=== PATIENT | male | born 1945 | race Caucasian/White ===

== ENCOUNTER 2023-06-19 10:00 | Inpatient (IN) | payer MEDICARE, OTHER, SELFPAY ==
[2023-06-19 11:45] VITALS: PULSE 68; RESP 16; O2SAT 95
[2023-06-19 12:53] VITALS: BP 137/76; PULSE 68; RESP 18; TEMP 36.1; O2SAT 95
[2023-06-19 12:55] VITALS: BMI 24.0
[2023-06-19] MEDS: rOPINIRole HCL 1 MG TABLET PO ×3 (13:51→20:14)
[2023-06-19] MEDS: BISACODYL 5 MG TABLET EC PO (13:52)
[2023-06-19 16:00] VITALS: BP 133/70; PULSE 73; RESP 24; TEMP 36.5; O2SAT 97
[2023-06-19] MEDS: LATANOPROST 0.005% OP SOLN 2.5 ML BTL 1 DROP EACH EYE (17:02)
[2023-06-19] MEDS: MIDODRINE HCL 2.5 MG TABLET 5 MG PO (17:02)
--- NOTE | 2023-06-19 17:26 | PC.NURSE ---
Nursing Note: Pt up to chair for dinner, takes meds in applesauce, atovent nasal spray not available from pharmacy.
[2023-06-19] MEDS: DONEPEZIL HCL 5 MG TABLET 10 MG PO (20:13)
[2023-06-19] MEDS: MELATONIN 5 MG TABLET 10 MG PO (20:13)
[2023-06-19] MEDS: TAMSULOSIN HCL 0.4 MG CAPSULE PO (20:14)
[2023-06-19] MEDS: CARBIDOPA/LEVODOPA 25/100 MG CR TABLET 1 TABLET PO (20:32)
[2023-06-20] VITALS: BP 133/77; PULSE 62; RESP 16; TEMP 36.1; O2SAT 97
--- NOTE | 2023-06-20 01:55 | PC.NURSE ---
Destiny Stearns NP contacted regarding pt's c/o right hip pain. New orders received for pain medication at this time.
[2023-06-20] MEDS: traMADol HCL (*CRX) 50 MG TABLET PO ×2 (02:05→20:23)
[2023-06-20 08:00] VITALS: BP 141/84; PULSE 75; RESP 14; TEMP 36.2; O2SAT 93
[2023-06-20] MEDS: IPRATROPIUM NASAL SPRAY 0.03% 15 ML BOTTLE 2 SPRAY NASAL ×2 (08:54→17:10)
[2023-06-20] MEDS: AZELASTINE HCL NASAL 0.1% 137 MCG/SPR 30 ML BTL 1 SPRAY NASAL ×2 (08:54→20:22)
[2023-06-20] MEDS: AMANTADINE HCL 100 MG CAPSULE PO ×2 (08:55→20:23)
[2023-06-20] MEDS: CHOLECALCIFEROL 1,000 UNITS TABLET 1000 UNITS PO (08:56)
[2023-06-20] MEDS: MIDODRINE HCL 2.5 MG TABLET 5 MG PO ×2 (08:56→13:13)
[2023-06-20] MEDS: LORATADINE 10 MG TABLET PO (08:56)
[2023-06-20] MEDS: FINASTERIDE 5 MG TABLET PO (08:56)
[2023-06-20] MEDS: rOPINIRole HCL 1 MG TABLET PO ×4 (08:56→20:23)
[2023-06-20] MEDS: ASCORBIC ACID 500 MG TABLET PO (08:56)
[2023-06-20] MEDS: BISACODYL 10 MG SUPPOSITORY RECTAL (08:57)
--- NOTE | 2023-06-20 09:19 | PC.NURSE ---
Rectal exam done by RN. Soft stool noted in rectum. Ducolax suppository inserted . Pt is lying on left side in bed. Call light in reach.
--- NOTE | 2023-06-20 09:46 | PM.IMHP ---
H&P: HPI History of Present Illness Date/Time: 06/20/23 09:46 Chief Complaint: Right hip fracture Narrative: Markel is a 78 year old admitted to [facility] on 06/19/23 from [facility] for rehab, further PT/OT, s/p ORIF of R hip fracture. At home, he was using cane and walker. He has a history of dementia, Parkinson's disease and RLS, who lost his balance, had a fall, and subsequent intertrochanteric fracture at right hip. He underwent surgical repair, ORIF of R hip fracture. His labs at hospital admission were WNL. Orthopedic surgeon wants patient to F/U in his office within 4 weeks or sooner if needed. Patient had a large BM this morning and subsequently had a serious vaso-vagal LOC response, with passing out, low BP while on commode pushing. Patient has also had this happen many years ago with a PCN injection in the physician's office getting a Penicillin G injection. Pt. was put back into bed, feet elevated, and BP checked, found to have SBPs in 90s. Pt did get his Midodrine earlier this morning. Ordered 500ml IV NS bolus now. Ed has since awakened, knew his name, knew hospital name, City, State, year, and what he was here for. Patient continued to improve. I have spoke with his daughter and adjusted his midodrine dose timing to 0600 and Noon. He does have history of passing out after morning and noon meals, so important to get his midodrine in prior to those. Ordered Orthostatic VS q shift. He may require Florinef dosing in the morning. Healthcare POA Daughter in agreement - DNR/DNI. Patient and daughter had lengthy discussion with me this morning. He decided that he wanted to be DNR/DNI as he does not want to be intubated or on mechanical ventilator, but he does want to have oxygen, IVFluids, IV meds, O2 mask, and CPAP/Bipap - should he need it. Allergy: erythromycin, PCN, sulfa. Review of Systems Constitutional: Constitutional: Denies excessive sweating, Denies headache(s), Denies increased appetite, Denies snoring and Denies weight gain Eyes: Eyes: Denies exophthalmos, Denies diplopia, Denies floaters and Denies loss of peripheral vision ENT: Reports Normal hearing present, Denies facial pain, Denies headache(s), Denies odynophagia and Denies tinnitus Cardiovascular: Cardiovascular: Reports as per HPI, Denies chest pain and Reports diaphoresis (diaphoretic with syncope) Respiratory: Respiratory: Reports as per HPI, Denies chest congestion, Denies cough, Denies hemoptysis, Denies dyspnea, Denies snoring and Denies wheezing Gastrointestinal: Gastrointestinal: Reports as per HPI, Denies melena, Reports constipation, Denies diarrhea, Denies nausea, Denies odynophagia, Denies vomiting and Denies hematemesis Genitourinary: Genitourinary: Reports as per HPI, Denies hematuria, Denies dysuria, Denies flank pain and Denies urinary frequency Musculoskeletal: Musculoskeletal: Reports as per HPI and Denies back pain Comments: weakness Integumentary/Breasts: Skin/Breast: Reports as per HPI Neurologic: Reports as per HPI, Denies confusion (confusion only with syncope) and Denies headache(s) Psychiatric: Psychiatric: Reports as per HPI, Denies anxiety, Denies behavioral changes and Reports confusion (only with syncope) Endocrine: Endocrine: Denies excessive sweating Allergic/Immunologic: Allergic/Immunologic: Denies wheezing [facility] Family History Family History (Updated 06/20/23 @ 13:01 by Charmaine Dobson NP) Mother CHF (congestive heart failure) Heart disease Diabetes mellitus Father Seizures Cerebrovascular accident Social History Social History Smoking status: Never smoker Second hand tobacco smoke exposure: No Alcohol intake: never Substance use: never Substance use type: does not use Lack of Transportation: No Lack of Food: Never True Current Housing: I Have Housing Concerned About Future Housing: No Difficulty Payin
[2023-06-20 11:25] LABS: Basophils Absolute Auto 0.03 K/mm3 (0.00-0.10); Basophils Percent Auto 0.4 % (0.0-1.0); Eosinophils Absolute Auto 0.12 K/mm3 (0.02-0.50); Eosinophils Percent Auto 1.5 % (1.0-6.0); Hematocrit 33.1 % (37.0-46.0); Hemoglobin 10.6 g/dL (12.4-15.3); Immature Granulocyte Absolute 0.03 K/mm3 (0.00-0.00); Immature Granulocyte Percent A 0.4 % (0.0-0.0); Lymphocytes Absolute Auto 0.82 K/mm3 (1.10-4.50); Lymphocytes Percent Auto 10.2 % (18.0-42.0); Mean Corpuscular Hemoglobin 28.6 pg (27.0-31.0); Mean Corpuscular Volume 89.5 fL (78.0-102.0); Mean Platelet Volume 8.8 fl (8.7-11.0); Monocytes Absolute Auto 0.91 K/mm3 (0.10-0.90); Monocytes Percent Auto 11.3 % (2.0-11.0); Neutrophils Absolute Auto 6.1 K/mm3 (1.7-7.2); Neutrophils Percent Auto 76.2 % (50.0-70.0); Platelet Count Result 254 K/mm3 (150-420); Red Cell Distribution Width 13.9 % (11.6-14.4)
[2023-06-20] MEDS: SODIUM CHLORIDE 0.9% IV 1,000 ML 1000 ML (11:27)
[2023-06-20 11:48] LABS: Alanine Aminotransferase 15 U/L (16-63); Albumin Level 2.7 g/dL (3.4-5.0); Alkaline Phosphatase 128 U/L (46-116); Anion Gap 4 mmol/L (8-16); Aspartate Amino Transferase 39 U/L (15-37); Bilirubin,Total 0.8 mg/dL (0.00-1.00); Blood Urea Nitrogen 15 mg/dL (7-18); Calcium 7.8 mg/dL (8.5-10.1); Carbon Dioxide 30 mmol/L (21-32); Chloride 101 mmol/L (98-108); Estimated CRCL calculation 40 ml/min; Estimated Glomerular Filt Rate 50; Glucose 102 mg/dL (70-99); Magnesium 1.8 mg/dL (1.8-2.4); NT Pro B Type Natriuretic Pept 111 pg/mL (0-450); Osmolality Calculated 280 mOsm/kg (285-295); Phosphorus 3.7 mg/dL (2.6-4.7); Potassium 3.9 mmol/L (3.5-5.1); Sodium 135 mmol/L (136-145); Total Protein 5.6 g/dL (6.4-8.2)
[2023-06-20] MEDS: ACETAMINOPHEN 325 MG TABLET 650 MG PO ×2 (13:12→17:10)
[2023-06-20] MEDS: DOCUSATE SODIUM 100 MG CAPSULE 200 MG PO (13:13)
[2023-06-20] MEDS: LIDOCAINE 5% PATCH 1 PATCH TRANSDERM (13:14)
--- NOTE | 2023-06-20 13:40 | PC.NURSE ---
AT 1040 Pt on the bedside comode having a large BM and became unresponsive. TN called for help and Yahir Royal RN and Scott RN came to the room. pt lifted back to bed from the commode using 3 people. Pt placed in trendelenberg position, HIGHER LEVEL TEACHING ASSISTANT called to the room, IV started in the RH 20 GAC. B/P 97/63 with 55 pulse. NS started at 500ml over 30 minutes started. 1100: 107/59 with 52 pulse, 1115; 97/63 with 63 pulse. 1130: 92/58 sitting & standing 77/58. 1140: sitting 110/66 with 66 [id number]: standing 89/49. 1150: sitting 116/100, standing 89/52. 1230 sitting 110/80. Pt denies dizziness, Nausea or chest pain. Pt is A/O x 3. Pt ate lunch with out difficulty.
--- NOTE | 2023-06-20 13:59 | PC.NURSE ---
Pt completed the 500 ml bolus with no problems. Pt resting in bed at this time.
[2023-06-20 16:00] VITALS: BP 138/76; PULSE 70; RESP 16; TEMP 36.6
[2023-06-20] MEDS: LATANOPROST 0.005% OP SOLN 2.5 ML BTL 1 DROP EACH EYE (17:10)
[2023-06-20 20:00] VITALS: BP 113/68; PULSE 67; RESP 16; TEMP 36.4; O2SAT 98
[2023-06-20] MEDS: MELATONIN 5 MG TABLET 10 MG PO (20:22)
[2023-06-20] MEDS: SENNA/DOCUSATE SODIUM TABLET 1 TAB PO (20:23)
[2023-06-20] MEDS: CARBIDOPA/LEVODOPA 25/100 MG CR TABLET 1 TABLET PO (20:23)
[2023-06-20] MEDS: DONEPEZIL HCL 5 MG TABLET 10 MG PO (20:23)
[2023-06-20] MEDS: TAMSULOSIN HCL 0.4 MG CAPSULE PO (20:24)
[2023-06-21] VITALS: BP 103/74; PULSE 65; RESP 16; TEMP 36.4; O2SAT 97
[2023-06-21] MEDS: traMADol HCL (*CRX) 50 MG TABLET PO (05:18)
[2023-06-21] MEDS: MIDODRINE HCL 2.5 MG TABLET 5 MG PO ×2 (05:19→12:09)
[2023-06-21] MEDS: rOPINIRole HCL 1 MG TABLET PO ×2 (05:19→13:34)
[2023-06-21 07:45] VITALS: BP 141/73; PULSE 61; RESP 14; TEMP 36.4; O2SAT 95
[2023-06-21] MEDS: SODIUM CHLORIDE 0.9% IV 500 ML (07:55)
[2023-06-21 08:00] VITALS: BP 99/59; PULSE 59; RESP 14; TEMP 36.4; O2SAT 95
--- NOTE | 2023-06-21 08:55 | ECG_ITS ---
Measurements Intervals [place] Rate: 75 P: 48 [place]: 123 QRS: -8 QRSD: 85 T: -14 QT: 394 QTc: 441 Interpretive Statements SINUS RHYTHM WITH OCCASIONAL VENTRICULAR PREMATURE COMPLEXES LOW QRS VOLTAGE IN PRECORDIAL LEADS VOLTAGE CRITERIA FOR LVH [MEETS CRITERIA IN ONE POSSIBLE ANTERIOR MYOCARDIAL INFARCTION , AGE INDETERMINATE Electronically Signed On 06-22-2023 13:03:50 LOAN DOCUMENTS CLOSER by Wallace Pham M.D.
--- NOTE | 2023-06-21 08:56 | PC.NURSE ---
Called daughter to notify of syncope episode and possible transfer to [place].
[2023-06-21 09:20] LABS: Hematocrit 33.7 % (37.0-46.0); Hemoglobin 10.9 g/dL (12.4-15.3); Mean Corpuscular HGB Conc 32.3 g/dL (32.0-36.0); Mean Corpuscular Hemoglobin 28.9 pg (27.0-31.0); Mean Corpuscular Volume 89.4 fL (78.0-102.0); Mean Platelet Volume 8.6 fl (8.7-11.0); Platelet Count Result 243 K/mm3 (150-420); Red Blood Count 3.77 M/mm3 (4.70-6.10); Red Cell Distribution Width 13.9 % (11.6-14.4); White Blood Count 6.2 K/mm3 (4.8-10.8)
[2023-06-21 09:38] LABS: Alanine Aminotransferase 18 U/L (16-63); Albumin Level 2.7 g/dL (3.4-5.0); Alkaline Phosphatase 138 U/L (46-116); Anion Gap 2 mmol/L (8-16); Aspartate Amino Transferase 29 U/L (15-37); Bilirubin,Total 0.7 mg/dL (0.00-1.00); Blood Urea Nitrogen 15 mg/dL (7-18); Calcium 8.2 mg/dL (8.5-10.1); Carbon Dioxide 31 mmol/L (21-32); Chloride 101 mmol/L (98-108); Estimated CRCL calculation 43 ml/min; Estimated Glomerular Filt Rate 54; Glucose 120 mg/dL (70-99); Osmolality Calculated 279 mOsm/kg (285-295); Potassium 3.9 mmol/L (3.5-5.1); Sodium 134 mmol/L (136-145); Total Protein 5.5 g/dL (6.4-8.2); Troponin I 7.2 ng/L (0.00-60.4)
[2023-06-21] MEDS: CHOLECALCIFEROL 1,000 UNITS TABLET 1000 UNITS PO (10:28)
[2023-06-21] MEDS: DOCUSATE SODIUM 100 MG CAPSULE 200 MG PO (10:28)
[2023-06-21] MEDS: ASCORBIC ACID 500 MG TABLET PO (10:28)
[2023-06-21] MEDS: AMANTADINE HCL 100 MG CAPSULE PO (10:29)
[2023-06-21] MEDS: FINASTERIDE 5 MG TABLET PO (10:29)
[2023-06-21] MEDS: ACETAMINOPHEN 325 MG TABLET 650 MG PO ×2 (10:29→13:33)
[2023-06-21] MEDS: LORATADINE 10 MG TABLET PO (10:29)
--- NOTE | 2023-06-21 11:23 | PC.NURSE ---
enema not given . Pt bowels are movine large amounts of soft stool.
--- NOTE | 2023-06-21 12:52 | PC.NURSE ---
Spoke with daughter and patient regarding hospitals that we are calling for transfer. Daughter does not want her father to transfer to [facility]. I explained he needed a higher level of care and that if the other hospitals do not call back we will have to attempt [facility]. She wants to wait to see if one of her choices responds at this time.
--- NOTE | 2023-06-21 12:53 | PM.TDS ---
Transfer Discharge Sum: Prov Provider Date of admission: 06/19/23 10:00 Primary care physician: Enrico Flower, MFaith Admitting clinician: Vineet Sarkar MD Attending physician on admission: Delgado Sarkar Attending physician on discharge: Delgado Sarkar Discharging clinician: Joni Gibbons Anticipated date of transfer: 06/21/23 Receiving physician/facility: Dr. Ventura at [facility] DS: Admitting Diagnosis Discharge Date 06/21/2023 Admitting Diagnosis right hip fracture, dementia, Parkinson's, RLS, orthostatic hypotension DS: Discharge Diagnosis Discharge Diagnosis (1) Dementia: Code(s): F03.90 - Unspecified dementia, unspecified severity, without behavioral disturbance, psychotic disturbance, mood disturbance, and anxiety Status: Acute (2) RLS (restless legs syndrome): Code(s): G25.81 - Restless legs syndrome Status: Acute (3) Parkinson disease, symptomatic: Code(s): G20.A1 - Parkinson's disease without dyskinesia, without mention of fluctuations Status: Acute (4) Primary orthostatic hypotension: Code(s): I95.1 - Orthostatic hypotension Status: Acute (5) Hip fracture, right: Code(s): S72.001A - Fracture of unspecified part of neck of right femur, initial encounter for closed fracture Status: Acute (6) S/P ORIF (open reduction internal fixation) fracture: Code(s): Z98.890 - Other specified postprocedural states; Z87.81 - Personal history of (healed) traumatic fracture Status: Acute (7) Constipation: Code(s): K59.00 - Constipation, unspecified Status: Acute (8) Syncope due to orthostatic hypotension: Code(s): I95.1 - Orthostatic hypotension Status: Acute (9) Symptomatic bradycardia: Code(s): R00.1 - Bradycardia, unspecified Status: Acute Transfer Discharge Sum: Med Medications Active and Home Medications: Home Medications ascorbic acid (vitamin C) 500 mg capsule,extended release 500 mg PO DAILY 02/04/20 [History Confirmed 06/19/23] finasteride 5 mg tablet 5 mg PO DAILY 02/04/20 [History Confirmed 06/19/23] tamsulosin 0.4 mg capsule 0.4 mg PO HS 02/04/20 [History Confirmed 06/19/23] tizanidine 2 mg capsule 2 mg PO TID PRN Cramps 02/04/20 [History Confirmed 06/19/23] latanoprost 0.005 % eye drops 1 drp ophthalmic (eye) QPM 05/12/20 [History Confirmed 06/19/23] Trish 180 mg DAILY 06/19/23 [History Confirmed 06/19/23] Dulcolax Stool Softener (dss) 100 mg BID 06/19/23 [History Confirmed 06/19/23] Potassium-99 99 mg HS 06/19/23 [History Confirmed 06/19/23] amantadine HCl 100 mg capsule 100 mg BID 06/19/23 [History Confirmed 06/19/23] azelastine 137 mcg (0.1 %) nasal spray aerosol 137 mcg intranasal BID 06/19/23 [History Confirmed 06/19/23] carbidopa 25 mg-levodopa 100 mg tablet See Rx Instructions .Route .COMPLEX 06/19/23 [History Confirmed 06/19/23] carbidopa ER 25 mg-levodopa 100 mg tablet,extended release 25 - 100 tablet PO HS 06/19/23 [History Confirmed 06/19/23] donepezil 10 mg tablet 10 mg HS 06/19/23 [History Confirmed 06/19/23] flaxseed 1,000 mcg DAILY 06/19/23 [History Confirmed 06/19/23] ipratropium bromide 21 mcg (0.03 %) nasal spray 2 spray intranasal BID 06/19/23 [History Confirmed 06/19/23] melatonin 10 mg HS 06/19/23 [History Confirmed 06/19/23] midodrine 5 mg tablet 5 mg BID 06/19/23 [History Confirmed 06/19/23] ropinirole 1 mg tablet 1 mg QID 06/19/23 [History Confirmed 06/19/23] Active Medications Acetaminophen (Acetaminophen 325 Mg Tablet) 650 mg PO TID [facility] Last Admin: 06/21/23 10:29 Dose: 650 mg Acetaminophen (Acetaminophen 500 Mg Tablet) 500 mg PO Q12HR PRN PRN Reason: Mild Pain (1-5) Amantadine HCl (Amantadine Hcl 100 Mg Capsule) 100 mg PO Q12HR [facility] Last Admin: 06/21/23 10:29 Dose: 100 mg Ascorbic Acid (Ascorbic Acid 500 Mg Tablet) 500 mg PO QAM [facility] Last Admin: 06/21/23 10:28 Dose: 500 mg Azelastine HCl (Azelastine Hcl Nasal 0.1%
--- NOTE | 2023-06-21 13:59 | PC.NURSE ---
Pt was transfered to the bedside commode at 0800 and at 0805 pt became unresponsive. Pt moved from the bedside commode to the bed with 3 people and placed in [facility]. B/P 99/59 p. 48. 0910; B/P 102/58. 0910 B/P 98/55 p. 70. 1000: B/P 126/72. Pt became more alert and oriented and by 1000 he was A/O x3. Lowest pulse 48, highest was 70. BANKING CONSULTANT Nguyễn aware and at bedside during this episode.
--- NOTE | 2023-06-21 16:05 | PC.NURSE ---
Report given to nurse Espinoza.
[2023-06-21 16:20] VITALS: BP 139/85; PULSE 74; RESP 18; TEMP 36.4; O2SAT 97
--- NOTE | 2023-06-21 16:35 | PC.NURSE ---
Patient transferring to [facility] in [facility]. Transferring to room 432. IV site left in place for acute transfer to higher level of care. Patient and daughter aware of transfer, room number and facility transferring to. Report given to nurse Espinoza. Patients daughters took all belongings. Patient given dinner early. Report given to EMS. Patient transferred from bed to stretcher with 3x assist. Patient left floor via stretcher accompanied by EMS.
== END 2023-06-21 16:35 | disposition short-term general hospital (02) | DRG 561 ==
PROVIDERS: Nurse Practitioner; Admitting Provider Internal Medicine; PCP Family Medicine; Visit Provider Internal Medicine
DX: S72.141D Displaced intertrochanteric fracture of right femur, subsequent encounter for closed fracture with routine healing (principal); I95.9 Hypotension, unspecified; R55 Syncope and collapse; R00.1 Bradycardia, unspecified; G20.A1 Parkinson's disease without dyskinesia, without mention of fluctuations; G25.81 Restless legs syndrome; F03.90 Unspecified dementia, unspecified severity, without behavioral disturbance, psychotic disturbance, mood disturbance, and anxiety; W19.XXXD Unspecified fall, subsequent encounter; Z66 Do not resuscitate
CPT/HCPCS: 36415; 80053; 83735; 83880; 84100; 84484; 85025; 85027; 93005; 97110; 97161; 97165; 97530; 97535; A9270; J7030; J7040

== ENCOUNTER 2023-06-25 12:46 | Inpatient (IN) | payer MEDICARE, OTHER, SELFPAY ==
--- NOTE | 2023-06-25 12:47 | ADMGEN ---
This patient, Markel Servin, was admitted to 2nd Floor Room 208-2. Patient/family oriented to hospital policies and general routines including ID bracelet, bed and alarms, visiting hours, pain management, procedures, bathroom and other care routines, personal items, smoking policy, room service/diet, and visiting hours. Information on how to activate the Rapid Response Team has been discussed. Patient/Family are encouraged to report perceived risks to care and to ask questions if they do not understand what they are told or what they should do.
[2023-06-25 12:55] VITALS: BP 142/99; PULSE 69; RESP 18; TEMP 36.4; O2SAT 97; BMI 23.3
[2023-06-25 14:00] VITALS: BP 139/76; PULSE 65
--- NOTE | 2023-06-25 14:40 | PM.IMHP ---
H&P: HPI History of Present Illness Date/Time: 06/25/23 14:40 Chief Complaint: Right hip fracture Narrative: On 06/19/23, Markel, a 78 year old, was admitted to [facility] on from [facility] for rehab, further PT/OT, s/p ORIF of R hip fracture. At home, he was using cane and walker. He has a history of dementia, Parkinson's disease and RLS, who lost his balance, had a fall, and subsequent intertrochanteric fracture at right hip. He underwent surgical repair, ORIF of R hip fracture. His labs at hospital admission were WNL. Orthopedic surgeon wants patient to F/U in his office within 4 weeks or sooner if needed. Patient had a large BM this morning and subsequently had a serious vaso-vagal LOC response, with passing out, low BP while on commode pushing. Patient has also had this happen many years ago with a PCN injection in the physician's office getting a Penicillin G injection. Pt. was put back into bed, feet elevated, and BP checked, found to have SBPs in 90s. Pt did get his Midodrine earlier this morning. Ordered 500ml IV NS bolus now. Ed has since awakened, knew his name, knew hospital name, City, State, year, and what he was here for. Patient continued to improve. I have spoke with his daughter and adjusted his midodrine dose timing to 0600 and Noon. He does have history of passing out after morning and noon meals, so important to get his midodrine in prior to those. Ordered Orthostatic VS q shift. He may require Florinef dosing in the morning. Healthcare POA Daughter in agreement - DNR/DNI. Patient and daughter had lengthy discussion with me this morning. He decided that he wanted to be DNR/DNI as he does not want to be intubated or on mechanical ventilator, but he does want to have oxygen, IVFluids, IV meds, O2 mask, and CPAP/Bipap - should he need it. Allergy: erythromycin, PCN, sulfa. On 06/21 Edward was transferred to [facility] due to multiple syncopal events, despite being on Midodrine. On 06/21 Transfer Note stated: Today he had episode of severe bradycardia with a third syncopal event with slow transfer to bedside commode.? No indication that he strained or did anything to elicit vagal response this time.? Initially patient was unresponsive, unable to palpate radial pulse but BP read 200s/120s.? After lifting patient back to bed and in Trendelenburg BP was 90s/50s and heart rate began to slowly increase to normal range.? EKG showed sinus rhythm without bradycardia.? Patient was not on telemetry due to Swing Bed status.? Spoke with patient's daughter and we feel that patient should be transferred to acute care at a facility capable of Pacemaker placement if necessary.? Multiple calls to multiple facilities and placed on multiple waiting lists.? Patient was declined at [facility] due to no high degree block documented.? Patient was accepted at [facility] and at [facility] in [facility].? A bed became available first at [place]. Today, on 06/25/23, Dr. Baker at [facility] called me to inform me that Markel was being discharged back to [facility] today. He said patient will be on Midodrine BID, that Ip Architect (including EP Cardiologists) were consulted and decided no pacemaker, as well as patient refusing PPM, and did recommend the patient to F/U with Ip Architect on an outpatient basis and get a Holter monitor at that time. Dr. Baker informed me that Markel's most recent orthostatic VS were: lying 164/85, sitting 121/61, and standing 115/103. Upon arrival and admission, I visited with and examined the patient. He is alert and oriented. I instructed him to notify nursing staff immediately if he ever feels lightheaded or dizzy or feels like passing out. He informed me that he has not had a BM for the last 3 days at [facility], is feeling constipated, and wants to have a BM. I informed him that he will need to stay in bed, until resolution of constipation, as we cannot have him
[2023-06-25] MEDS: ACETAMINOPHEN 325 MG TABLET 650 MG PO (15:14)
[2023-06-25 16:00] VITALS: BP 90/52; PULSE 73; RESP 16; TEMP 36.8; O2SAT 96
[2023-06-25] MEDS: rOPINIRole HCL 0.5 MG TABLET BY MOUTH ×2 (16:15→20:47)
[2023-06-25] MEDS: CARBIDOPA/LEVODOPA 25/100 MG TABLET 1.5 TABLET PO (16:18)
[2023-06-25] MEDS: AMANTADINE HCL 100 MG CAPSULE BY MOUTH (17:20)
[2023-06-25] MEDS: LATANOPROST 0.005% OP SOLN 2.5 ML BTL 1 DROP EACH EYE (17:20)
[2023-06-25] MEDS: MIDODRINE HCL 2.5 MG TABLET 5 MG BY MOUTH (17:20)
[2023-06-25] MEDS: SENNA/DOCUSATE SODIUM TABLET 1 TAB PO (20:47)
[2023-06-25] MEDS: CARBIDOPA/LEVODOPA 25/100 MG CR TABLET 1 TABLET PO (20:47)
[2023-06-25] MEDS: MELATONIN 3 MG TABLET PO (20:47)
[2023-06-25] MEDS: TAMSULOSIN HCL 0.4 MG CAPSULE PO (20:47)
[2023-06-25] MEDS: HYDROcodone/acetaminophen (*CRX) 5-325 MG TABLET 1 TAB PO (20:55)
[2023-06-26] VITALS (16 sets, daily range): BP systolic 67–157; BP diastolic 37–89; PULSE 61–94; RESP 16–18; TEMP 36.3–36.8; O2SAT 96–98
[2023-06-26] MEDS: rOPINIRole HCL 0.5 MG TABLET BY MOUTH ×4 (05:08→20:21)
[2023-06-26] MEDS: CARBIDOPA/LEVODOPA 25/100 MG TABLET 1.5 TABLET PO ×3 (05:09→16:02)
--- NOTE | 2023-06-26 05:10 | PC.NURSE ---
Pt given sinemet 25/100 1.5 tablets and ropinerole 0.5 mg po. Ropinerole was given early per pt's request.
--- NOTE | 2023-06-26 05:20 | PC.NURSE ---
Pt given Ropinerole early per his request.
[2023-06-26 05:21] LABS: Hematocrit 39.1 % (37.0-46.0); Hemoglobin 12.4 g/dL (12.4-15.3); Mean Corpuscular HGB Conc 31.7 g/dL (32.0-36.0); Mean Corpuscular Hemoglobin 28.6 pg (27.0-31.0); Mean Corpuscular Volume 90.1 fL (78.0-102.0); Mean Platelet Volume 8.4 fl (8.7-11.0); Platelet Count Result 384 K/mm3 (150-420); Red Blood Count 4.34 M/mm3 (4.70-6.10); Red Cell Distribution Width 14.4 % (11.6-14.4); White Blood Count 7.2 K/mm3 (4.8-10.8)
[2023-06-26 05:35] LABS: Alanine Aminotransferase 14 U/L (16-63); Alkaline Phosphatase 182 U/L (46-116); Anion Gap 2 mmol/L (8-16); Aspartate Amino Transferase 20 U/L (15-37); Bilirubin,Total 0.7 mg/dL (0.00-1.00); Blood Urea Nitrogen 19 mg/dL (7-18); Calcium 7.8 mg/dL (8.5-10.1); Carbon Dioxide 33 mmol/L (21-32); Chloride 101 mmol/L (98-108); Estimated CRCL calculation 44 ml/min; Estimated Glomerular Filt Rate 56; Glucose 101 mg/dL (70-99); Osmolality Calculated 284 mOsm/kg (285-295); Potassium 4.1 mmol/L (3.5-5.1); Sodium 136 mmol/L (136-145); Total Protein 6.5 g/dL (6.4-8.2)
[2023-06-26 05:57] LABS: Thyroid Stimulating Hormone Reflex 2.36 u/IU/mL (0.36-3.74)
--- NOTE | 2023-06-26 08:25 | PC.NURSE ---
At bedside at 0810 obtaining vital signs. Patient bp lowered from supine to sitting, unable to obtain standing blood pressure. Pt assisted while standing with urinal and then assisted to chair by two nurses. Blood pressure still low, MOBILE BATTERY TECHNICIAN notified and came to bedside. Medications reviewed with nursing staff and MOBILE BATTERY TECHNICIAN. Awaiting orders for medication changes.
--- NOTE | 2023-06-26 08:28 | P.PNCROSS_ITS ---
Event Note Event Note Event Note: Patient had a near syncope event and his blood pressure dropped when he stood u p. Patient blood pressure dropped although patient states he felt a lot of pressure in his head. Patient states once he was sat he feels a lot of better at this time we will increase the Midorin to TID vs BID to see if there will assist with the the length.
[2023-06-26] MEDS: ASCORBIC ACID 500 MG TABLET PO (09:45)
[2023-06-26] MEDS: AMANTADINE HCL 100 MG CAPSULE BY MOUTH ×2 (09:45→17:27)
[2023-06-26] MEDS: MIDODRINE HCL 2.5 MG TABLET 5 MG BY MOUTH ×3 (09:45→20:11)
[2023-06-26] MEDS: THERAPEUTIC MULTIVITAMINS/MINERALS TAB (*BKC) 1 TABLET PO (09:46)
[2023-06-26] MEDS: DOCUSATE SODIUM 100 MG CAPSULE 200 MG PO (09:46)
[2023-06-26] MEDS: FLUDROCORTISONE ACETATE 0.1 MG TABLET PO (09:46)
[2023-06-26] MEDS: ACETAMINOPHEN 325 MG TABLET 650 MG PO ×3 (09:46→17:27)
[2023-06-26] MEDS: FINASTERIDE 5 MG TABLET PO (09:46)
[2023-06-26] MEDS: ASPIRIN 81 MG ENTERIC TABLET PO (09:46)
[2023-06-26] MEDS: LORATADINE 10 MG TABLET PO (09:46)
--- NOTE | 2023-06-26 10:25 | PC.NURSE ---
Pt assisted by two up to bedside commode. Stated he felt like his blood pressure was low. Bp 68/41. Assisted with two from bsc to chair. recheck of bp 80/41. Charge nurse notified and reaching out to ARCHIVAL RECORDS CLERK.
--- NOTE | 2023-06-26 10:43 | PC.NURSE ---
Notified Provider of low BP when getting up to commode. Pt did not pass out with the blood pressure decrease. Orders recieved. Will continue to monitor.
[2023-06-26] MEDS: SODIUM CHLORIDE 0.9% IV 1,000 ML 999 ML IV CONT (10:55)
--- NOTE | 2023-06-26 14:25 | PC.NURSE ---
Pt wanted to stand by chair. Two nurses went to assist patient to stand with walker B/P prior to standing in L arm 130/61 1415. When standing at 1420 B/P 76/54 pt still alert and oriented. When patient sat down at 1422 B/P came up to 86/57 still alert and oriented.
[2023-06-26] MEDS: LATANOPROST 0.005% OP SOLN 2.5 ML BTL 1 DROP EACH EYE (17:27)
[2023-06-26] MEDS: HYDROcodone/acetaminophen (*CRX) 5-325 MG TABLET 1 TAB PO (20:07)
[2023-06-26] MEDS: SENNA/DOCUSATE SODIUM TABLET 1 TAB PO (20:07)
[2023-06-26] MEDS: MELATONIN 3 MG TABLET PO (20:08)
[2023-06-26] MEDS: TAMSULOSIN HCL 0.4 MG CAPSULE PO (20:08)
[2023-06-26] MEDS: CARBIDOPA/LEVODOPA 25/100 MG CR TABLET 1 TABLET PO (20:08)
--- NOTE | 2023-06-26 22:35 | PC.NURSE ---
pt up to side of bed, washed back w/ warm water, applied lotion, pt moved to top of bed, hob elevated, call light in reach, alarm on
[2023-06-27] VITALS: BP 135/80; PULSE 74; RESP 18; TEMP 36.6; O2SAT 96
--- NOTE | 2023-06-27 02:38 | PC.NURSE ---
Pt awake and wanting another pain med, he states the meds aren't working and his restless legs are keeping him awake also. He is asking for tylenol or Aleve. Informed pt no other pain meds ordered at this time. Pt repositioned in bed for comfort and pillows propped under his legs. Charge nurse informed of pt wishes to receive Tylenol or Naproxen in between his [place] doses for pain management.
[2023-06-27] MEDS: HYDROcodone/acetaminophen (*CRX) 5-325 MG TABLET 1 TAB PO (04:09)
--- NOTE | 2023-06-27 04:13 | PC.NURSE ---
Pt awake and sitting upright in bed, unable to sleep, using his arm stretch exercise bands from P.T. Pt still c/o pain in hip and down his leg. Pt given another [place] as per order for pain. Charge nurse informed of need for Trazadone order at HS for pt.
[2023-06-27] MEDS: MIDODRINE HCL 2.5 MG TABLET 5 MG BY MOUTH ×2 (05:04→15:28)
[2023-06-27] MEDS: rOPINIRole HCL 0.5 MG TABLET BY MOUTH ×4 (05:04→23:47)
[2023-06-27] MEDS: CARBIDOPA/LEVODOPA 25/100 MG TABLET 1.5 TABLET PO ×3 (05:04→15:27)
[2023-06-27 08:00] VITALS: BP 105/64; PULSE 68; RESP 16; TEMP 36.3; O2SAT 97
[2023-06-27] MEDS: AMANTADINE HCL 100 MG CAPSULE BY MOUTH ×2 (08:25→17:10)
[2023-06-27] MEDS: ASPIRIN 81 MG ENTERIC TABLET PO (08:25)
[2023-06-27] MEDS: ACETAMINOPHEN 325 MG TABLET 650 MG PO ×3 (08:25→17:10)
[2023-06-27] MEDS: DOCUSATE SODIUM 100 MG CAPSULE 200 MG PO (08:25)
[2023-06-27] MEDS: FINASTERIDE 5 MG TABLET PO (08:25)
[2023-06-27] MEDS: THERAPEUTIC MULTIVITAMINS/MINERALS TAB (*BKC) 1 TABLET PO (08:26)
[2023-06-27] MEDS: ASCORBIC ACID 500 MG TABLET PO (08:26)
[2023-06-27] MEDS: LORATADINE 10 MG TABLET PO (08:26)
[2023-06-27] MEDS: FLUDROCORTISONE ACETATE 0.1 MG TABLET PO (08:26)
[2023-06-27] MEDS: MIDODRINE HCL 2.5 MG TABLET 5 MG PO (10:32)
--- NOTE | 2023-06-27 10:45 | PC.NURSE ---
Nurse accompanied ROLLING MACHINE OPERATOR AUTOMATIC to room to discuss medication changes and times with patient's daughter. Nurse took hand written notes during discussion. Please see ROLLING MACHINE OPERATOR AUTOMATIC note for detailed account of discussion between ROLLING MACHINE OPERATOR AUTOMATIC and patient and patient's daughter. Hand written notes will be kept for future reference if needed.
--- NOTE | 2023-06-27 12:13 | PC.NURSE ---
Patient left unit at 1205 to go to orthopedic appointment in [place]. Patient's daughter took patient in privately owned vehicle. Animal Scientist assisted patient off unit in w/c and assisted patient with transfer into vehicle.
--- NOTE | 2023-06-27 12:42 | PM.IMPN ---
Progress Note: A&P Assessment and Plan (1) Dementia: Code(s): F03.90 - Unspecified dementia, unspecified severity, without behavioral disturbance, psychotic disturbance, mood disturbance, and anxiety Status: Acute Assessment and Plan: chronic, continue control with PO medications reorientation frequently (2) RLS (restless legs syndrome): Code(s): G25.81 - Restless legs syndrome Status: Acute Assessment and Plan: chronic, continue control with PO medications encourage hydration on 06/27/23, Markel is alert and doing well with therapy, except he continues to have low BPs with standing. Spent quite some time meeting with Markel, his daughter/POA, and his nurse - we came to the following agreement of medications and schedule: decreasing the Ropinirole dosing, to Ropinirole 0.5mg at 0000, 0500, 1100, 1600, and 1mg at 2100. -->Patient needs to be encouraged to pump his ankles and keep legs active during the day, as we will not increase his Ropinirole doses, to avoid worsening his already severe orthostatic hypotension. We will do our best to not make multiple medication dose or timing changes in one day, to see what affects his Orthostatic Hypotension the most. (3) Parkinson disease, symptomatic: Code(s): G20.A1 - Parkinson's disease without dyskinesia, without mention of fluctuations Status: Acute Assessment and Plan: chronic, continue control with PO medications on 06/27/23, continues to have low BPs with standing. Spent quite some time meeting with Markel, his daughter/POA, and his nurse - we came to the following agreement of medications and schedule: We will do our best to not make multiple medication dose or timing changes in one day, to see what affects his Orthostatic Hypotension the most. Also keep the Carbidopa-Levodopa dosings and times as they are now - best for patient per daughter/POA and per Hospitalist. NO parkinsonian symptoms noted on exam today - and patient reports he isn't having any, on rare events maybe in the middle of the night. Also keep patient having daily BMs, to avoid the constipation and vaso-vagal effect on his BP. His labs are stable. (4) Primary orthostatic hypotension: Code(s): I95.1 - Orthostatic hypotension Status: Acute Assessment and Plan: 06/27/23, continues to have low BPs with standing. Spent quite some time meeting with Markel, his daughter/POA, and his nurse - we came to the following agreement of medications and schedule: Midodrine 5mg at 0500, 0900, 1300; as well as decreasing the Ropinirole dosing, so Ropinirole 0.5mg at 0000, 0500, 1100, 1600, and 1mg at 2100. Patient needs to be encouraged to pump his ankles and keep legs active during the day, as we will not increase his Ropinirole doses, to avoid worsening his already severe orthostatic hypotension. We will do our best to not make multiple medication dose or timing changes in one day, to see what affects his Orthostatic Hypotension the most. If his Standing BP continue to be <90s, he will need to have the Midodrine dosing increased to 10mg, but KEEP the same timing of dosings. Also keep the Carbidopa-Levodopa dosings and times as they are now - best for patient per daughter/POA and per Hospitalist. Also keep patient having daily BMs, to avoid the constipation and vaso-vagal effect on his BP. 06/25 AVOID all causes of vaso-vagal responses. including pushing from constipation. midodrine dose timing to 0600 and Noon. Ordered Orthostatic VS q shift. He may require Florinef dosing in the morning. Was started on 0.1 Florinef daily on 06/26 keep patient WELL hydrated push and encourage oral hydration use 500mg NS IVF bolus PRN use Abdominal Binder and BLE compression stockings Use PRN Midodrine for hypotension Didi is Medical POA. 06/19 serious vaso-vagal LOC response, with passing out, low BP while on commode pushing a large BM this morning Hx. Patient has also had this happen
--- NOTE | 2023-06-27 15:19 | PC.NURSE ---
Patient returned to unit from orthopedic appointment with his daughter. Was able to transfer from w/c to recliner with 2 assist.
[2023-06-27 16:00] VITALS: BP 81/50; PULSE 78; RESP 16; TEMP 36.4; O2SAT 99
[2023-06-27] MEDS: LATANOPROST 0.005% OP SOLN 2.5 ML BTL 1 DROP EACH EYE (17:10)
[2023-06-27 20:00] VITALS: PULSE 78; RESP 16; O2SAT 99
[2023-06-27] MEDS: SENNA/DOCUSATE SODIUM TABLET 1 TAB PO (20:32)
[2023-06-27] MEDS: TAMSULOSIN HCL 0.4 MG CAPSULE PO (20:32)
[2023-06-27] MEDS: MELATONIN 3 MG TABLET PO (20:32)
[2023-06-27] MEDS: rOPINIRole HCL 1 MG TABLET PO (20:32)
[2023-06-27] MEDS: CARBIDOPA/LEVODOPA 25/100 MG CR TABLET 1 TABLET PO (20:33)
[2023-06-28] VITALS: BP 161/82; PULSE 62; RESP 16; TEMP 36.8; O2SAT 97
[2023-06-28] MEDS: CARBIDOPA/LEVODOPA 25/100 MG TABLET 1.5 TABLET PO ×3 (05:08→16:33)
[2023-06-28] MEDS: MIDODRINE HCL 2.5 MG TABLET 5 MG BY MOUTH ×3 (05:09→12:35)
[2023-06-28] MEDS: rOPINIRole HCL 0.5 MG TABLET BY MOUTH ×4 (05:09→23:25)
[2023-06-28] MEDS: BISACODYL 5 MG TABLET EC PO (05:13)
--- NOTE | 2023-06-28 05:47 | PC.NURSE ---
Patient was admitted as a swing bed patient. He has had 1425 out independently using the urinal. He had good oral intake, and drinks his fluids well. His IV flushed with ease. Blood pressure was 161/82. All other vitals WNL. He did not require any pain medication, and did not get up during the night, per [employer]'s orders. Patient will have an event monitor placed today, to monitor his cardiac functioning. Patient's R hip is healing well. Patient has orthostatic blood pressures ordered, but is not supposed to get out of bed at night. As a result, his midnight vitals were taken in a supine position only. Patient slept well.
[2023-06-28 08:00] VITALS: BP 130/80; PULSE 66; RESP 16; TEMP 36.3; O2SAT 95
[2023-06-28] MEDS: AMANTADINE HCL 100 MG CAPSULE BY MOUTH ×2 (08:44→16:35)
[2023-06-28] MEDS: ACETAMINOPHEN 325 MG TABLET 650 MG PO ×3 (08:45→16:35)
[2023-06-28] MEDS: FLUDROCORTISONE ACETATE 0.1 MG TABLET PO (08:45)
[2023-06-28] MEDS: ASCORBIC ACID 500 MG TABLET PO (08:45)
[2023-06-28] MEDS: THERAPEUTIC MULTIVITAMINS/MINERALS TAB (*BKC) 1 TABLET PO (08:45)
[2023-06-28] MEDS: FINASTERIDE 5 MG TABLET PO (08:46)
[2023-06-28] MEDS: DOCUSATE SODIUM 100 MG CAPSULE 200 MG PO (08:46)
[2023-06-28] MEDS: ASPIRIN 81 MG ENTERIC TABLET PO (08:46)
[2023-06-28] MEDS: LORATADINE 10 MG TABLET PO (08:46)
[2023-06-28 16:00] VITALS: BP 142/81; PULSE 65; RESP 16; TEMP 36.4; O2SAT 98
[2023-06-28] MEDS: LATANOPROST 0.005% OP SOLN 2.5 ML BTL 1 DROP EACH EYE (18:27)
[2023-06-28] MEDS: TAMSULOSIN HCL 0.4 MG CAPSULE PO (21:12)
[2023-06-28] MEDS: rOPINIRole HCL 1 MG TABLET PO (21:12)
[2023-06-28] MEDS: SENNA/DOCUSATE SODIUM TABLET 1 TAB PO (21:12)
[2023-06-28] MEDS: CARBIDOPA/LEVODOPA 25/100 MG CR TABLET 1 TABLET PO (21:12)
[2023-06-28] MEDS: MELATONIN 3 MG TABLET PO (21:12)
[2023-06-29] VITALS: BP 160/84; PULSE 84; RESP 16; TEMP 36.6; O2SAT 96
[2023-06-29] MEDS: rOPINIRole HCL 0.5 MG TABLET BY MOUTH ×4 (05:36→23:41)
[2023-06-29] MEDS: CARBIDOPA/LEVODOPA 25/100 MG TABLET 1.5 TABLET PO ×3 (05:36→16:20)
[2023-06-29] MEDS: MIDODRINE HCL 2.5 MG TABLET 5 MG BY MOUTH ×3 (05:37→13:28)
[2023-06-29 08:00] VITALS: BP 96/56; PULSE 80; RESP 16; TEMP 36.2; O2SAT 97
[2023-06-29] MEDS: ASCORBIC ACID 500 MG TABLET PO (09:31)
[2023-06-29] MEDS: LORATADINE 10 MG TABLET PO (09:31)
[2023-06-29] MEDS: FINASTERIDE 5 MG TABLET PO (09:31)
[2023-06-29] MEDS: DOCUSATE SODIUM 100 MG CAPSULE 200 MG PO (09:32)
[2023-06-29] MEDS: AMANTADINE HCL 100 MG CAPSULE BY MOUTH ×2 (09:32→16:21)
[2023-06-29] MEDS: ASPIRIN 81 MG ENTERIC TABLET PO (09:32)
[2023-06-29] MEDS: THERAPEUTIC MULTIVITAMINS/MINERALS TAB (*BKC) 1 TABLET PO (09:33)
[2023-06-29] MEDS: ACETAMINOPHEN 325 MG TABLET 650 MG PO ×2 (13:29→16:20)
[2023-06-29 16:00] VITALS: BP 189/90; PULSE 64; RESP 18; TEMP 37; O2SAT 97
[2023-06-29] MEDS: LATANOPROST 0.005% OP SOLN 2.5 ML BTL 1 DROP EACH EYE (18:01)
[2023-06-29] MEDS: rOPINIRole HCL 1 MG TABLET PO (20:24)
[2023-06-29] MEDS: TAMSULOSIN HCL 0.4 MG CAPSULE PO (20:24)
[2023-06-29] MEDS: SENNA/DOCUSATE SODIUM TABLET 1 TAB PO (20:25)
[2023-06-29] MEDS: CARBIDOPA/LEVODOPA 25/100 MG CR TABLET 1 TABLET PO (20:25)
[2023-06-29] MEDS: MELATONIN 3 MG TABLET PO (20:26)
[2023-06-29 23:46] VITALS: BP 152/72; PULSE 59; RESP 18; TEMP 36.2; O2SAT 97
[2023-06-30] MEDS: CARBIDOPA/LEVODOPA 25/100 MG TABLET 1.5 TABLET PO ×3 (04:46→16:04)
[2023-06-30] MEDS: MIDODRINE HCL 2.5 MG TABLET 5 MG BY MOUTH ×3 (04:47→12:58)
[2023-06-30] MEDS: rOPINIRole HCL 0.5 MG TABLET BY MOUTH ×4 (04:52→23:08)
[2023-06-30 08:00] VITALS: BP 88/54; PULSE 86; RESP 17; TEMP 36.3; O2SAT 99
[2023-06-30] MEDS: THERAPEUTIC MULTIVITAMINS/MINERALS TAB (*BKC) 1 TABLET PO (09:10)
[2023-06-30] MEDS: ASCORBIC ACID 500 MG TABLET PO (09:10)
[2023-06-30] MEDS: ASPIRIN 81 MG ENTERIC TABLET PO (09:10)
[2023-06-30] MEDS: DOCUSATE SODIUM 100 MG CAPSULE 200 MG PO (09:10)
[2023-06-30] MEDS: AMANTADINE HCL 100 MG CAPSULE BY MOUTH ×2 (09:10→17:38)
[2023-06-30] MEDS: LORATADINE 10 MG TABLET PO (09:10)
[2023-06-30] MEDS: FINASTERIDE 5 MG TABLET PO (09:10)
[2023-06-30] MEDS: FLUDROCORTISONE ACETATE 0.1 MG TABLET PO (09:10)
[2023-06-30] MEDS: ACETAMINOPHEN 325 MG TABLET 650 MG PO ×3 (09:10→17:38)
[2023-06-30 16:00] VITALS: BP 139/82; PULSE 77; RESP 17; TEMP 36.4; O2SAT 96
[2023-06-30 19:56] VITALS: PULSE 77; RESP 17; O2SAT 96
[2023-06-30] MEDS: LATANOPROST 0.005% OP SOLN 2.5 ML BTL 1 DROP EACH EYE (20:03)
[2023-06-30] MEDS: rOPINIRole HCL 1 MG TABLET PO (20:03)
[2023-06-30] MEDS: CARBIDOPA/LEVODOPA 25/100 MG CR TABLET 1 TABLET PO (20:04)
[2023-06-30] MEDS: TAMSULOSIN HCL 0.4 MG CAPSULE PO (20:04)
[2023-06-30] MEDS: MELATONIN 3 MG TABLET PO (20:04)
[2023-06-30] MEDS: SENNA/DOCUSATE SODIUM TABLET 1 TAB PO (20:04)
[2023-06-30] MEDS: HYDROcodone/acetaminophen (*CRX) 5-325 MG TABLET 1 TAB PO (23:11)
[2023-07-01] VITALS: BP 135/87; PULSE 76; RESP 16; TEMP 36.3; O2SAT 97
[2023-07-01] MEDS: rOPINIRole HCL 0.5 MG TABLET BY MOUTH ×3 (04:32→16:18)
[2023-07-01] MEDS: MIDODRINE HCL 2.5 MG TABLET 5 MG BY MOUTH ×3 (04:32→13:05)
[2023-07-01] MEDS: CARBIDOPA/LEVODOPA 25/100 MG TABLET 1.5 TABLET PO ×3 (04:32→16:18)
[2023-07-01 05:36] LABS: Hematocrit 38.5 % (37.0-46.0); Hemoglobin 12.1 g/dL (12.4-15.3); Mean Corpuscular HGB Conc 31.4 g/dL (32.0-36.0); Mean Corpuscular Hemoglobin 28.4 pg (27.0-31.0); Mean Corpuscular Volume 90.4 fL (78.0-102.0); Mean Platelet Volume 8.7 fl (8.7-11.0); Platelet Count Result 360 K/mm3 (150-420); Red Blood Count 4.26 M/mm3 (4.70-6.10); Red Cell Distribution Width 14.3 % (11.6-14.4); White Blood Count 6.6 K/mm3 (4.8-10.8)
[2023-07-01 05:50] LABS: Anion Gap 4 mmol/L (8-16); Blood Urea Nitrogen 18 mg/dL (7-18); Calcium 8.2 mg/dL (8.5-10.1); Carbon Dioxide 31 mmol/L (21-32); Chloride 103 mmol/L (98-108); Estimated CRCL calculation 51 ml/min; Estimated Glomerular Filt Rate > 60; Glucose 82 mg/dL (70-99); Osmolality Calculated 286 mOsm/kg (285-295); Potassium 3.8 mmol/L (3.5-5.1); Sodium 138 mmol/L (136-145)
[2023-07-01 07:55] VITALS: BP 109/70; PULSE 77; RESP 16; TEMP 36; O2SAT 96
[2023-07-01] MEDS: ACETAMINOPHEN 325 MG TABLET 650 MG PO ×3 (08:21→16:18)
[2023-07-01] MEDS: THERAPEUTIC MULTIVITAMINS/MINERALS TAB (*BKC) 1 TABLET PO (08:21)
[2023-07-01] MEDS: LORATADINE 10 MG TABLET PO (08:22)
[2023-07-01] MEDS: DOCUSATE SODIUM 100 MG CAPSULE 200 MG PO (08:22)
[2023-07-01] MEDS: AMANTADINE HCL 100 MG CAPSULE BY MOUTH ×2 (08:22→16:19)
[2023-07-01] MEDS: ASCORBIC ACID 500 MG TABLET PO (08:22)
[2023-07-01] MEDS: FLUDROCORTISONE ACETATE 0.1 MG TABLET PO (08:23)
[2023-07-01] MEDS: FINASTERIDE 5 MG TABLET PO (08:23)
[2023-07-01] MEDS: ASPIRIN 81 MG ENTERIC TABLET PO (08:23)
[2023-07-01] MEDS: HYDROcodone/acetaminophen (*CRX) 5-325 MG TABLET 1 TAB PO (11:36)
--- NOTE | 2023-07-01 12:50 | PM.DS ---
DS: Admitting Diagnosis Discharge Date 07/01/2023 Admitting Diagnosis Swing, Hypotension , bradycardia, DS: Summary Hospital Course Reason for hospitalization: Bradycardia, hypotension, Weakness and pain Hospital Course: Markel Servin is a 78 year old male admitted for Swing Bed, acute rehab for right hip fracture.? He has history of Parkinson's, dementia, RLS and orthostatic hypotension on midodrine.? He had ORIF at [facility] by Dr. Blair on 06/13.? He came to [facility] where he had syncopal episode and was transferred to [place]. Patient returned still was having some dizzy spells was started on Midorin but worked with therapy. At this time patient is anxious to return home. He will need some home health assistance now that he is discharged with some PT/OT if possible . Patient will follow up with his PCP, Cardiology. Continue with his home medication as discharged with. Time Spent with Patient Time attestation: Total time spent providing and/or coordinating discharge services: Exam Narrative: GENERAL: pale appearing with syncope HEENT: Pupils pinpoint and sluggish NECK: no JVD, no adenopathy, supple CHEST/LUNGS: clear to auscultation HEART: normal rate/rhythm ABDOMEN: soft, nontender, nondistended, positive bowel sounds EXTREMITIES: No edema, moves all extremities equally, surgical site clean dry intact right lateral hip with some bruising SKIN: pale,color normal for pateint PSYCHIATRIC: Appropriate mood and affect after recovery NEUROLOGIC: No gross neuro defects DS: Data Data Completed and Pending Labs on day of discharge: Labs from last 24 hours 07/01/23 05:05 WBC 6.6 RBC 4.26 L Hgb 12.1 L Hct 38.5 MCV 90.4 MCH 28.4 MCHC 31.4 L RDW 14.3 Plt Count 360 MPV 8.7 Sodium 138 Potassium 3.8 Chloride 103 Carbon Dioxide 31 Anion Gap 4 L BUN 18 Creatinine 1.08 Estim Creat Clear Calc 51 Estimated GFR > 60 Glucose 82 Calculated Osmolality 286 Calcium 8.2 L Discharge Plan Discharge Attending physician on discharge: Delgado Sarkar Consulting providers: Charmaine Dobson; Miriam Araujo Discharging Clinician: Miriam Araujo Anticipated Discharge Date/Time: 12/18/23 12:29 Patient Disposition: Home Health Service Activity: november shower Diet: heart healthy Wound Care Instructions: follow printed instructions Discharge Instructions: Make sure that you drink plenty of fluids Rise slowly and make sure that you have someone with you Take medication as prescribed Follow up with your PCP and keep all previous appointment that you already had schedule. Per Care Coordination: [facility] will be calling you to set up time to see you within the next 48 hrs. You will be followed by a nurse, PT and a bath aide. Patient Instructions: Antibiotic Form, Hydrocodone/Acetaminophen (By mouth), Fludrocortisone Acetate (By mouth), Constipation (DC), Hypotension (ED), Hypotension (DC), Bradycardia (DC), Weakness (DC), Near Syncope (DC), Fall Prevention (DC) Stand Alone Forms: General Discharge Information Follow-up/Referrals: Ching,Enrico Linares M.D. [Primary Care Provider] - (Follow up post swing visit with Dr. Flower Saturday at 0830. Please make sure to take your medications in the bottles. Masks are optional. Will call you day before the appointment.) Discharge Medications: New fludrocortisone 0.1 mg Tablet 0.1 mg PO DAILY@0800 Qty: 30 0RF hydrocodone-acetaminophen 5-325 mg tablet 1 tablet PO Q8H PRN (Reason: pain) Qty: 20 0RF Continued Adult Low Dose Aspirin 81 mg 81 mg DAILY Antacid (calcium carbonate) 600 mg 600 mg DAILY Multi-Vitamin with Iron 1 CAPSULe 1 cap DAILY amantadine HCl 100 mg capsule 100 mg BID azelastine 137 mcg (0.1 %) aerosol,spray 137 mcg INTRANASAL BID carbidopa-levodopa 25-100 mg tablet See Rx Instructions .ROUTE .COMPLEX Rx In
[2023-07-01 16:00] VITALS: BP 171/80; PULSE 74; RESP 16; TEMP 36.5; O2SAT 98
--- NOTE | 2023-07-01 17:40 | PC.NURSE ---
Patient left unit in w/c accompanied by nurse and patient's daughter. Personal items sent home with patient. Discharge instructions given to patient and daughter. Both voiced understanding. Nurse emphasized for patient or daughter to call us with any questions they may have. Patient left hospital grounds in privately owned vehicle.
--- NOTE | 2023-07-03 08:47 | PC.NURSE ---
Discharge call back completed, spoke with daughter, he is doing well at home, did receive dc instructions and understood them, no concerns with care provided
--- NOTE | 2023-07-03 12:12 | PC.NURSE ---
Called daughter to notify her that he had medications here from the senior living. She will pick pack worker at a later date.
== END 2023-07-01 17:40 | disposition home health service (06) | DRG 561 ==
PROVIDERS: Nurse Practitioner; Nurse Practitioner Family; Admitting Provider Internal Medicine; PCP Family Medicine; Visit Provider Internal Medicine
DX: S72.141D Displaced intertrochanteric fracture of right femur, subsequent encounter for closed fracture with routine healing (principal); I95.9 Hypotension, unspecified; K59.00 Constipation, unspecified; G25.81 Restless legs syndrome; G20.A1 Parkinson's disease without dyskinesia, without mention of fluctuations; F02.80 Dementia in other diseases classified elsewhere, unspecified severity, without behavioral disturbance, psychotic disturbance, mood disturbance, and anxiety; W19.XXXD Unspecified fall, subsequent encounter
CPT/HCPCS: 36415; 80048; 80053; 82533; 84443; 85027; 97110; 97161; 97165; 97530; 97535; A9270; J7030